=== PATIENT | female | born 2000 | race American Indian/Alaskan Native ===

== ENCOUNTER 2019-04-15 06:17 | Emergency (ER) | payer SELFPAY ==
[2019-04-15 06:24] VITALS: BP 124/85
[2019-04-15] MEDS ORDERED: DOCUSATE SODIUM 100 MG/10 ML ORAL LIQD PO ONE (09:08)
--- NOTE | 2019-04-15 09:10 | Emergency Department Report ---
ED ENT HPI - General Chief complaint: Earache Stated complaint: EAR PAIN Time Seen by Provider: 04/15/19 09:07 Source: patient Mode of arrival: Ambulatory Limitations: No Limitations - History of Present Illness Initial comments: 18 YO AA FEMALE COMES TO ER WITH SENSATION OF SOMETHING IN HER RIGHT EAR. NO OTHER SYMPTOMS. 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 - Related Data Allergies Allergy/AdvReac Type Severity Reaction Status Date / Time No Known Allergies Allergy Unverified 04/15/19 06:18 ED Dental HPI - General Chief complaint: Earache Stated complaint: EAR PAIN Time Seen by Provider: 04/15/19 09:07 Source: patient Mode of arrival: Ambulatory Limitations: No Limitations - Related Data Allergies Allergy/AdvReac Type Severity Reaction Status Date / Time No Known Allergies Allergy Unverified 04/15/19 06:18 ED Review of Systems ROS: Stated complaint: EAR PAIN Other details as noted in HPI Comment: All other systems reviewed and negative ED Past Medical Hx - Past Medical History Previous Medical History?: No - Surgical History Past Surgical History?: No - Family History Family history: no significant - Social History Smoking Status: Never Smoker Substance Use Type: None ED Physical Exam - General Limitations: No Limitations General appearance: alert, in no apparent distress - Head Head exam: Present: atraumatic, normocephalic - Eye Eye exam: Present: normal appearance - ENT ENT exam: Present: mucous membranes moist - Expanded ENT Exam Expanded TM/Canal exam: Foreign Body: Right TM - Neck Neck exam: Present: normal inspection - Respiratory Respiratory exam: Present: normal lung sounds bilaterally. Absent: respiratory distress - Cardiovascular Cardiovascular Exam: Present: regular rate, normal rhythm. Absent: systolic murmur, diastolic murmur, rubs, gallop - GI/Abdominal GI/Abdominal exam: Present: soft, normal bowel sounds - Extremities Exam Extremities exam: Present: normal inspection - Back Exam Back exam: Present: normal inspection - Neurological Exam Neurological exam: Present: alert, oriented X3 - Psychiatric Psychiatric exam: Present: normal affect, normal mood - Skin Skin exam: Present: warm, dry, intact, normal color. Absent: rash ED Course Vital Signs 04/15/19 06:18 Temperature 99.4 F Pulse Rate 108 H Respiratory 20 Rate Blood Pressure 124/85 O2 Sat by Pulse 99 Oximetry ED Medical Decision Making - Medical Decision Making LEVIN IN R EAR COLACE TO KILL THE LEVIN EAR IRRIGATED DC HOME WITH DC PLAN OF CARE AND PCP FOLLOW UP Vital Signs 04/15/19 06:18 Temperature 99.4 F Pulse Rate 108 H Respiratory 20 Rate Blood Pressure 124/85 O2 Sat by Pulse 99 Oximetry - Differential Diagnosis FB IN EAR Critical care attestation.: If time is entered above; I have spent that time in minutes in the direct care of this critically ill patient, excluding procedure time. ED Disposition Clinical Impression: Foreign body in ear Disposition: DC-01 TO HOME OR SELFCARE Is pt being admited?: No Does the pt Need Aspirin: No Condition: Stable Additional Instructions: MOTRIN OR TYLENOL FOR PAIN FOLLOW UP WITH PCP Referrals: BALDO ABBOTT MD [Staff Physician] - 3-5 Days Time of Disposition: 09:09
[2019-04-15] MEDS ORDERED: LIDOCAINE (1%) 10 MG/1 ML VIAL 20 ML MDV INFILTRATI ONE (09:27)
[2019-04-15] MEDS ORDERED: LIDOCAINE-MPF (1%) 10 MG/1 ML VIAL 5 ML ONE (09:29)
== END 2019-04-15 10:41 | disposition home or self-care (01) ==
LOC: ED 06:17
DX: T16.1XXA Foreign body in right ear, initial encounter (principal); X58.XXXA Exposure to other specified factors, initial encounter; Y93.89 Activity, other specified; Y92.89 Other specified places as the place of occurrence of the external cause; Y99.8 Other external cause status